=== PATIENT | female | born 1975 | race Caucasian/White ===

== ENCOUNTER 2017-07-05 15:20 | Observation (INO) | payer OTHER ==
[2017-07-05] MEDS ORDERED: NS 0.9% 1000 ML* 1,000 ML IV ONE ×2 (15:49→16:48)
--- NOTE | 2017-07-05 16:06 | RAD ---
INDICATION: Neurologic changes, code brady. COMPARISON: There are no prior studies available for comparison. TECHNIQUE: Contiguous axial sections of the brain were obtained from the skull base to the vertex without contrast. FINDINGS: The ventricles, cisterns and sulci are within normal limits. No significant focal abnormality or mass effect is seen. There is no evidence for hemorrhage. No significant focal osseous abnormality is seen. The visualized portion of the paranasal sinuses and mastoid air cells appear clear. The results of this examination were called to the referring clinician at 1601 hours. IMPRESSION: NO EVIDENCE FOR GROSS ACUTE INFARCT, MASS EFFECT OR HEMORRHAGE.
--- NOTE | 2017-07-05 16:16 | RAD ---
INDICATION: Neurologic changes, code brady. COMPARISON: There are no prior studies available for comparison. TECHNIQUE: A portable view of the chest was obtained. FINDINGS: Cardiac and mediastinal contours appear to be within normal limits. The lungs are clear. No pleural effusion is seen. IMPRESSION: NO EVIDENCE FOR ACUTE DISEASE.
[2017-07-05 16:20] LABS: ABS Basophils 0 10^3/ul (0-0.2); ABS Eosinophils 0.1 10^3/ul (0-0.6); ABS Lymphocytes 2.4 10^3/ul (1.0-4.8); ABS Monocytes 0.5 10^3/ul (0-0.8); ABS Neutrophils 3.3 10^3/ul (1.5-7.7); ABS Nucleated RBC 0 10^3/ul; Eosinophil % 0.9 % (0-6); Hematocrit 41 % (35-47); Hemoglobin 13.8 g/dl (12.0-16.0); Lymphocyte % 37.6 % (25-47); Mean Corpuscular HGB Conc 34 g/dl (31-36); Mean Corpuscular Hemoglobin 32 pg (27-31); Mean Corpuscular Volume 94 fL (80-97); Mean Platelet Volume 9 um3 (7.4-10.4); Nucleated Red Blood Cells % 0; Platelet Count 246 10^3/ul (150-450); Red Blood Count 4.31 10^6/ul (4.0-5.4); Red Cell Distribution Width 12 % (10.5-15); White Blood Count 6.3 10^3/ul (3.5-10.8)
[2017-07-05 16:43] LABS: EGFR Non-African American 84.3 (>60)
[2017-07-05 16:47] LABS: INR 1.02 (0.77-1.02)
[2017-07-05] MEDS ORDERED: diPHENhydraMINE IV* 50 MG/ML 1 ml VIAL (BENADRYL) IV ONE (16:47)
[2017-07-05] MEDS ORDERED: Metoclopramide IV* 5 MG/ML 2 ML VIAL IV ONE (16:47)
[2017-07-05] MEDS ORDERED: Ketorolac INJ* 30 MG/ML 1 ML VIAL IV PUSH ONE (16:47)
[2017-07-05] MEDS ORDERED: Ondansetron INJ* 2 MG/ML VIAL IV PRN (17:30)
[2017-07-05] MEDS ORDERED: Ibuprofen TAB* 600 MG PO PRN (17:36)
[2017-07-05] MEDS ORDERED: Acetaminophen TAB* 325 MG PO PRN (17:38)
--- NOTE | 2017-07-05 17:44 | RAD ---
INDICATION: Headache and weakness. COMPARISON: Comparison is made with a prior MRI of the same day. TECHNIQUE: A 2-D time of flight magnetic resonance venogram of the brain was performed. Images were reconstructed in the maximum intensity projection format. FINDINGS: The venous sinuses and visualized portion of the veins appear patent without evidence for thrombus or narrowing. IMPRESSION: NEGATIVE EXAM.
--- NOTE | 2017-07-05 17:49 | RAD ---
INDICATION: Headache and weakness. COMPARISON: Comparison is made with a prior CT of the brain of the same day. TECHNIQUE: Sagittal T1, axial T1, T2, susceptibility, FLAIR and diffusion weighted images were obtained. FINDINGS: The ventricles, cisterns and sulci appear to be within normal limits. No significant focal abnormality or mass effect is seen. No areas of restricted diffusion are present. There is no evidence for infarct or hemorrhage. The paranasal sinuses appear clear. There are small effusions within the mastoid air cells on both sides. IMPRESSION: 1. NO EVIDENCE FOR ACUTE INTRACRANIAL ABNORMALITY. 2. SMALL EFFUSIONS WITHIN THE MASTOID AIR CELLS.
[2017-07-05] MEDS: NS 0.9% 1000 ML* 1,000 ML IV SCH (20:08)
--- NOTE | 2017-07-05 21:43 | HP ---
CC: Dr. Sathya Santos * HISTORY AND PHYSICAL: DATE OF ADMISSION: 07/05/17 PRIMARY CARE PROVIDER: Dr. Sathya Santos. ATTENDING PHYSICIAN: Dr. Chanda Patel * (dictated by Kari Root NP). CHIEF COMPLAINT: Headache for one week with intermittent slurred speech for 2 days. HISTORY OF PRESENT ILLNESS: Ms. Dietrich is a 41-year-old female with a past medical history significant for asthma as a child and seasonal allergies who presented to the emergency room with complaints of headache x1 week. The patient states that approximately a week ago, she flew home on an approximately 6-hour flight. She states since coming home, she has had a headache intermittently, has been feeling poor enough to stay home from work. She admits to being fatigued and sleeping more. She reports subjective fevers yesterday. The patient has also reported a stiff neck for approximately a week. Yesterday, she developed an episode of slurred speech that lasted for approximately 5 to 10 minutes and this spontaneously resolved and then again around noon today, she had again an episode of 5 to 10 minutes of slurred speech. At this time, she also noticed that her right hand was having difficulty grasping a cup in addition to feeling like her left foot was "sleeping." The patient states her headaches are worse with movement such as bending over or moving her head. She also reports intermittent nausea. She denies photophobia or phonophobia. The patient also reports right facial numbness. Due to her symptoms, she decided to call her primary care provider who recommended that she present to the emergency room. While in the emergency room, the patient had labs that were essentially unremarkable. She had a brain CT with no acute findings. She was seen in consultation by Neurology, who felt that this likely represented a migraine and an MRI and MRV of the head were recommended. The hospitalists were asked to evaluate the patient for admission. PAST MEDICAL HISTORY: 1. Asthma as a child. 2. Seasonal allergies. PAST SURGICAL HISTORY: Status post section. HOME MEDICATIONS: Include ibuprofen 400 mg oral every 6 hours as needed for fever or pain. ALLERGIES: MICONAZOLE. FAMILY HISTORY: The patient reports that her father has a history of atrial fibrillation. She denies any family history of diabetes mellitus or cancer. SOCIAL HISTORY: The patient denies tobacco or recreational drug use. She occasionally drinks alcoholic beverages. She is and lives with her . Her , Vicente, will be her surrogate decision maker in the event she is unable to make decisions for herself. REVIEW OF SYSTEMS: I performed an 11-point review of systems. All the pertinent positives and negatives are mentioned in the history of present illness. The remaining review of systems are negative. PHYSICAL EXAMINATION GENERAL APPEARANCE: The patient is alert, pleasant, and appears to be in no acute distress. VITAL SIGNS: Temperature 98.5, heart rate 88, respiratory rate 20, O2 sat 99% on room air, blood pressure 116/67. HEENT: Normocephalic, atraumatic. Pupils are equal and reactive to light. Extraocular movements are intact. Mucous membranes are dry. RESPIRATORY: There is no accessory muscle use. The lungs are clear to auscultation bilaterally. CARDIOVASCULAR: Regular rate and rhythm. S1 and S2 present. There are no murmurs, rubs, or gallops. ABDOMEN: Soft, nontender, nondistended. Bowel sounds present x4. EXTREMITIES: There is no lower extremity edema. DP and PT pulses are 2+ and symmetric. MUSCULOSKELETAL: There is no clubbing or cyanosis noted. The patient is able to move her neck with full range of motion without any difficulty. NEUROLOGICAL: The patient is alert and oriented x4. Cranial nerves II through XII are grossly intact. The patient is able to dorsi and plantarflex bilaterally. She is able to lift both legs off the bed. Her handgrips are equal. Her smile is symmetric. Her tongue is midline. PSYCHOLOGICAL: The patient is calm and cooperative. SKIN: There are no rashes or abnormalities seen. DIAGNOSTIC STUDIES/LABORATORY DATA: Sodium 137, potassium 3.8, chloride 103, CO2 27, BUN 12, creatinine 0.76, glucose 101. White blood cell count 6.3, hemoglobin 13.8, hematocrit 41, and platelet count 246. EKG, normal sinus rhythm with a rate of 67. There are no acute signs of ischemia. There is no previous EKG for comparison. Head CT from today. Radiologist's impression: No evidence for gross acute infarct, mass effect, or hemorrhage. Chest x-ray from today. Radiologist's impression: No evidence for acute disease. IMPRESSION: Ms. Dietrich is a 41-year-old female with no significant past medical history who presents to the emergency room with complaints of headache for one week with associated nausea, neck discomfort, and slurred speech. She will be admitted as an observation for headache. ASSESSMENT: 1. Headache. I suspect the patient's headache and symptoms represent a migraine. She has been seen in consultation by Neurology. While in the emergency room, she will receive IV Benadryl, ketorolac, and Reglan to attempt to break her headache. She does appear slightly dehydrated. So, we are going to give her some gentle IV hydration overnight. She had an MRA and MRV and reads are pending, she has just returned from having those tests done. We will continue to do neuro checks. She will be monitored on telemetry to ensure that this is not a transient ischemic attack. We will get a fasting lipid panel in the morning. 2. Fluids, electrolytes and nutrition. The patient will be on a regular diet. 3. Code status. Full code. 4. DVT prophylaxis. The patient is at low risk. She will be encouraged to ambulate. 5. Disposition. Observation. TIME SPENT: The time for this admission was approximately 60 minutes, greater than half of that was spent with the patient discussing medications, past medical history and the events leading up to her arrival today and performing a physical examination. The case has been reviewed with the attending, Dr. Patel, who agrees with the plan of care. Reviewed by HEBER VIDAL 07/14/17 1451 [id number] #: [id number] MTDD
--- NOTE | 2017-07-05 21:51 | CONS ---
CONSULTATION REPORT: DATE OF CONSULT: 07/05/17 LOCATION: The patient is in the emergency department. REQUESTING PHYSICIAN: Dr. Benjamin. REASON FOR CONSULT: Code brady. HISTORY OF PRESENT ILLNESS: Paige Dietrich is a 41-year-old woman with no significant past medical history, who presented to the emergency department today in the setting of 1 week of intermittent headache which over the last 2 days has been associated with some transient neurologic symptoms. The patient reports no significant history of head-aches in the past aside from what she calls regular headaches, which would typically occur on the vertex of her head and were not associated with any light nor sound sensitivity and no nausea, no vomiting. This would occur rarely. One week ago today, last Monday, she developed a headache, which begins in the front of her head and radiates to the back and she says stops at the top of her spine. This headache has been very sensitive to position changes and increases when she bends over and stands back up. She denies any transient visual obscurations. The pain is pounding in nature. She denies any significant light or sound sensitivity with this, but she has been nauseated and 2 days ago she vomited. She tried taking ibuprofen yesterday and the day prior to that once which gave some but not complete relief and the headache returned. The day prior to this headache beginning, she traveled back from [facility] where she and her have been for the last 4 months traveling in [place]. She states that she had been well- hydrated normally while abroad, though did take this long plane ride. She denies any history of DVTs, PEs, or frequent miscarriages in the past. When she developed the headache the next day, she thought she was coming down with something and had some subjective fever, but did not take her temperature. She does not recall any myalgias and denies cough or runny nose or sore throat. The headache persisted through and then on Monday, she was able to go to work as it was only very mild. Over the weekend, she did not have significant headaches but felt exhausted and spent most of her time in bed. The headache returned 2 days ago and yesterday she was speaking in a group setting when she developed some tingling on the right lower lip and then some garbling of her speech, which lasted about 5 to 10 minutes. 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 She tested herself by raising her arms and smiling and there was no weakness. Today , she was at an buffet having lunch when she again developed the tingling of the right lower lip, but no garbled speech. She then also felt some tingling in her left foot and indicates that she had trouble putting weight on it when she was walking to the buffet. She also felt that she had more trouble holding on to her glass of water with her right hand and all of this lasted about 5 to 10 minutes but this is the point at which she called her primary care doctor's office and was advised to present to the emergency department. On my evaluation, she indicates her transient neurologic symptoms have all resolved, but the headache remains as described. She denies any visual changes such as vision loss or double vision with this. She describes no aphasia. She has felt that her balance has been okay aside from when her left foot was numb. PAST MEDICAL HISTORY: 1. First trimester miscarriage prior to a healthy little over 4 years ago. 2. . MEDICATIONS: No current medications aside from ibuprofen p.r.n. ALLERGIES: No known drug allergies. FAMILY HISTORY: Sister with a thyroid disorder. Mother has varicose veins. No history of stroke or blood clotting problems that she is aware of. There is also no history of migraine headaches. 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 She has 1 daughter , who is almost 4 years old. No significant substance use. REVIEW OF SYSTEMS: As per the HPI, otherwise negative. PHYSICAL EXAM: Vital Signs: Temperature 97, blood pressure 119/67, heart rate 73, oxygen saturation 100% on room air. On general examination, she is a pleasant, well-developed woman, in no acute distress. Her heart is in regular rate and rhythm with no murmurs, rubs or gallops. Lungs are clear to auscultation bilaterally. There are no carotid bruits. Her skin is intact. There is no extremity edema. I do note that her right hand is colder to touch than her left hand, but pulses are palpable. On neurologic examination, she is fully awake, alert, and oriented. Her speech is fluent with no dysarthria or aphasia. Pupils were equal, round, and reactive from 4 to 2 mm bilaterally. Her fundi were benign. Versions are full without nystagmus. Galdamez are full to finger counting. Facial sensation and musculature is full and symmetric. Hearing is intact to finger rub. The palate elevates symmetrically and the tongue is midline. On motor examination, she has normal bulk and tone in the upper and lower extremities. Strength is full both proximally and distally with no pronator drift. Sensation was intact to light touch and pinprick in the upper and lower extremities. Reflexes are 2 to 3+ in the upper extremities and at the knees and 2+ at the ankles with downgoing toes bilaterally. On finger- to-nose and [id number] testing, there is no ataxia but when asked to touch her finger to her nose with her eyes closed , she misses the target bilaterally. Romberg is negative. She is able to stand on her heels and toes. DIAGNOSTIC STUDIES/LAB DATA: There is no laboratory data available for review at this time, though CBC and CMP are pending. A noncontrast brain CT was personally reviewed and showed no evidence for any acute abnormality and overall appeared to be a grossly normal study. IMPRESSION: Paige Dietrich is a 41-year-old woman with no significant past medical history who presents with new onset headache for approximately the past week associated with some migrainous features and exacerbated with position changes who developed some transient neurologic symptoms of right lower lip numbness, left foot numbness and some right decreased nurse practitioner adult strength over the past 2 days. This occurs in the setting of previous subjective fever and fatigue raising the question of a possible infectious etiology such as viral meningitis. Furthermore, she had a recent transatlantic flight and has recently been dehydrated, which could also raise the possibility of sinus thrombosis. Given the fact she is someone who does not typically suffer from migraines, in addition to treating her symptoms with migraine cocktail, I think we should continue with workup including MRI of the brain without contrast and MRV as well. I discussed with her that if these are negative, we may need to proceed with lumbar puncture especially if her symptoms are recurrent or poorly responsive to the migraine cocktail. I am not highly suspicious of a stroke at this point given the non-localizable nature of her transient neurologic deficits. In addition, her NIH stroke scale at this point is 0. The patient will most likely need to be admitted for observation status to complete this testing. Thank you for this consultation. [id number]/[facility] #: [id number] TYESHA
[2017-07-06 05:42] LABS: EGFR Non-African American 115.1 (>60)
[2017-07-06] MEDS: NS 0.9% 1000 ML* 1,000 ML IV SCH (06:19)
[2017-07-06 08:26] LABS: Urine Appearance Clear; Urine Blood 3+ (Negative); Urine Color Yellow; Urine Ketones Negative (Negative); Urine Protein Negative (Negative); Urine Specific Gravity 1.014 (1.010-1.030); Urine Urobilinogen Negative (Negative)
[2017-07-06 12:43] VITALS: BP 95/58
--- NOTE | 2017-07-06 13:34 | PN ---
Subjective Date of Service: 07/06/17 Interval History: Patient seen and examined at bedside. Denies fever, chills, shortness of breath , chest discomfort, N/V/D. Pt states that she has a mild headache that she describes as her normal headaches. Tele: Sinus rhythm, rate 60's Family History: Unchanged from Admission Social History: Unchanged from Admission Past Medical History: Unchanged from Admission Objective Active Medications: Acetaminophen (Tylenol Tab*) 650 mg PO Q4H PRN Reason: FEVER/PAIN Sodium Chloride (Ns 0.9% 1000 Ml*) 1,000 mls @ 100 mls/hr IV PER RATE COLEEN Ibuprofen (Motrin Tab*) 600 mg PO Q6H PRN Reason: PAIN Ondansetron HCl (Zofran Inj*) 4 mg IV Q6H PRN Reason: NAUSEA Vital Signs - 8 hr 07/06/17 07/06/17 07/06/17 07:16 07:45 11:01 Temperature 98.8 F 98.8 F Pulse Rate 59 72 Respiratory 20 16 18 Rate Blood Pressure 105/62 95/58 (mmHg) O2 Sat by Pulse 98 98 Oximetry Oxygen Devices in Use Now: None Appearance: NAD, sitting up in bed Ears/Nose/Mouth/Throat: Mucous Membranes Moist Neck: NL Appearance and Movements; NL JVP - Able to move neck with full ROM Respiratory: Symmetrical Chest Expansion and Respiratory Effort, Clear to Auscultation Cardiovascular: NL Sounds; No Murmurs; No JVD, RRR Abdominal: NL Sounds; No Tenderness; No Distention Extremities: No Edema Skin: No Rash or Ulcers Neurological: Alert and Oriented x 3, NL Muscle Strength and Tone Lines/Tubes/Other Access: Clean, Dry and Intact Peripheral IV - site benign Nutrition: Taking PO's Result Diagrams: 07/05/17 16:05 07/06/17 04:50 Assess/Plan/Problems-Billing Assessment: Ms. Dietrich is a 41 yo female with no significant PMH who presented to the emergency room with complaints of slurred speech, right hand weakness, left foot tingling and headache. - Patient Problems (1) Intractable headache Code(s): R51 - HEADACHE SNOMED Code(s): 49696184 Comment: - Negative work-up - Suspect symptoms are secondary to Migraine - Low suspicion for meningitis, will hold off on LP (2) DVT prophylaxis Code(s): DWG4129 - SNOMED Code(s): 531379430 (3) Full code status Code(s): Z78.9 - OTHER SPECIFIED HEALTH STATUS SNOMED Code(s): 633608669 Status and Disposition: OBV. Stable for discharge to home today.
--- NOTE | 2017-07-07 11:46 | ED ---
Valentin Khan Angela, scribed for Anish Benjamin MD on 07/05/17 at 1550 . Neurological HPI - HPI Summary HPI Summary: This pt is a 41 y/o female [facility]/o headache x1 week, today with left leg weakness and jaw numbness since 13:30 today. Pt reports her headache began 1 week ago, described as pulsating headache located on the frontal side of her head radiating to the back of her head. At onset of headache pt also had a fever. She states that her headache was aggravated with movement of her head; she vomited once 2 days ago. Pt additionally states yesterday and today she had numbness in her jaw, left fingers and left side of her face. Today she developed slurred speech, left leg weakness and had an unsteady gait at approximately 13:30 today. Pt currently states all her symptoms have subsided except her headache. She currently rates her headache 7/10 in severity. Pt notes she feels back to normal except for her persistent headache. She denies hx of headaches. - History of Current Complaint Chief Complaint: EDHeadache Stated Complaint: HEADACHE Hx Obtained From: Patient Onset/Duration: Started hours ago, Still Present Timing: Sudden Onset Current Severity: Moderate - Headache 7/10 in severity Pain Intensity: 7 - headache Pain Scale Used: 0-10 Numeric Character: Weak - left leg, Numbness/Tingling - Numbness of left fingers, left sided face, and jaw, Impaired Speech - slurred speech, Other: - vomited once Aggravating: Change in Head Position Alleviating: Nothing Associated Signs and Symptoms: Positive: Headache, Weakness - left leg, Numbness - left fingers, left sided of face, and jaw, Nausea/Vomiting - vomited once 2 days ago - Allergy/Home Medications Allergies/Adverse Reactions: Allergies Allergy/AdvReac Type Severity Reaction Status Date / Time miconazole Allergy See Comment Verified 07/06/17 07:51 Home Medications: Home Medications Ibuprofen TAB* [Advil TAB*] 200 mg PO Q6H PRN 07/05/17 [History Confirmed ] PMH/Surg Hx/FS Hx/Imm Hx Endocrine/Hematology History: Denies: Hx Diabetes Cardiovascular History: Denies: Hx Hypertension Respiratory History: Reports: Hx Asthma - as a child - Surgical History Surgery Procedure, Year, and Place: Infectious Disease History: No Infectious Disease History: Denies: Traveled Outside the [place] in Last 30 Days - Family History Family History: Mother: breast tumor - Social History Alcohol Use: Occasionally Substance Use Type: Reports: None Smoking Status (MU): Never Smoked Tobacco Review of Systems Negative: Fever, Chills Positive: Vomiting - one episode 2 days ago Neurological: Other - slurred speech (CURRENTLY RESOLVED) Positive: Headache, Weakness - left leg: CURRENTLY RESOLVED, Numbness - left fingers, left side of the face, and jaw: CURRENTLY RESOLVED All Other Systems Reviewed And Are Negative: Yes Physical Exam - Summary Physical Exam Summary: VITAL SIGNS: Reviewed. GENERAL: Patient is a well-developed and nourished female who is lying comfortable in the stretcher. Patient is not in any acute respiratory distress. HEAD AND FACE: No signs of trauma. No ecchymosis, hematomas or skull depressions. No sinus tenderness. EYES: PERRLA, EOMI x 2, No injected conjunctiva, no nystagmus. No photophobia. EARS: Hearing grossly intact. Ear canals and tympanic membranes are within normal limits. MOUTH: Oropharynx within normal limits. NECK: Supple, trachea is midline, no adenopathy, no JVD, no carotid bruit, no c- spine tenderness, neck with full ROM. No meningeal signs, no Kernig's or brudzinskis signs. CHEST: Symmetric, no tenderness at palpation LUNGS: Clear to auscultation bilaterally. No wheezing or crackles. CVS: Regular rate and rhythm, S1 and S2 present, no murmurs or gallops appreciated. ABDOMEN: Soft, non-tender. No signs of distention. No rebound no guarding, and no masses palpated. Bowel sounds are normal. EXTREMITIES: FROM in all major joints, no edema, no cyanosis or clubbing. NEURO: Alert and oriented x 3. Speech is normal and follows commands. Numbness in the jaw. SKIN: Dry and warm GCS: 15 Triage Information Reviewed: Yes Vital Signs On Initial Exam: Initial Vitals Temp Pulse Resp BP Pulse Ox 97 F 73 16 119/67 100 07/05/17 15:28 07/05/17 15:28 07/05/17 15:28 07/05/17 15:28 07/05/17 15:28 Vital Signs Reviewed: Yes - Christie Coma Scale Best Eye Response: 4 - Spontaneous Best Motor Response: 6 - Obeys Commands Best Verbal Response: 5 - Oriented Coma Scale Total: 15 Diagnostics - Vital Signs Vital Signs Temp Pulse Resp BP Pulse Ox 07/05/17 15:28 97 F 73 16 119/67 100 - Laboratory Lab Results: Lab Results 07/05/17 07/05/17 07/05/17 Range/Units 16:05 16:05 16:05 WBC 6.3 (3.5-10.8) 10^3/ul RBC 4.31 (4.0-5.4) 10^6/ul Hgb 13.8 (12.0-16.0) g/dl Hct 41 (35-47) % MCV 94 (80-97) fL MCH 32 H (27-31) pg MCHC 34 (31-36) g/dl RDW 12 (10.5-15) % Plt Count 246 (150-450) 10^3/ul MPV 9 (7.4-10.4) um3 Neut % (Auto) 53.1 (38-83) % Lymph % (Auto) 37.6 (25-47) % Parmer % (Auto) 7.6 (1-9) % Eos % (Auto) 0.9 (0-6) % Baso % (Auto) 0.8 (0-2) % Absolute Neuts (auto) 3.3 (1.5-7.7) 10^3/ul Absolute Lymphs (auto) 2.4 (1.0-4.8) 10^3/ul Absolute Monos (auto) 0.5 (0-0.8) 10^3/ul Absolute Eos (auto) 0.1 (0-0.6) 10^3/ul Absolute Basos (auto) 0 (0-0.2) 10^3/ul Absolute Nucleated RBC 0 10^3/ul Nucleated RBC % 0 INR (Anticoag Therapy) 1.02 (0.77-1.02) APTT 27.9 (26.0-36.3) seconds Sodium 137 (133-145) mmol/L Potassium TNP Chloride 103 (101-111) mmol/L Carbon Dioxide 27 (22-32) mmol/L Anion Gap 7 (2-11) mmol/L BUN 12 (6-24) mg/dL Creatinine 0.76 (0.51-0.95) mg/dL Est GFR ( Amer) 108.4 (>60) Est GFR (Non-Af Amer) 84.3 (>60) BUN/Creatinine Ratio 15.8 (8-20) Glucose 101 H (70-100) mg/dL POC Glucose (mg/dL) (70-100) mg/dL Lactic Acid (0.5-2.0) mmol/L Calcium 9.4 (8.6-10.3) mg/dL Total Bilirubin 0.50 (0.2-1.0) mg/dL AST TNP ALT 14 (7-52) U/L Alkaline Phosphatase 39 (34-104) U/L Troponin I 0.00 (<0.04) ng/mL Total Protein 7.2 (6.4-8.9) g/dL Albumin 4.0 (3.2-5.2) g/dL Globulin 3.2 (2-4) g/dL Albumin/Globulin Ratio 1.3 (1-3) Triglycerides 90 mg/dL Cholesterol 161 mg/dL LDL Cholesterol 103 mg/dL HDL Cholesterol 40.4 mg/dL Blood Type Antibody Screen 07/05/17 07/05/17 07/05/17 Range/Units 16:05 16:05 16:07 WBC (3.5-10.8) 10^3/ul RBC (4.0-5.4) 10^6/ul Hgb (12.0-16.0) g/dl Hct (35-47) % MCV (80-97) fL MCH (27-31) pg MCHC (31-36) g/dl RDW (10.5-15) % Plt Count (150-450) 10^3/ul MPV (7.4-10.4) um3 Neut % (Auto) (38-83) % Lymph % (Auto) (25-47) % Parmer % (Auto) (1-9) % Eos % (Auto) (0-6) % Baso % (Auto) (0-2) % Absolute Neuts (auto) (1.5-7.7) 10^3/ul Absolute Lymphs (auto) (1.0-4.8) 10^3/ul Absolute Monos (auto) (0-0.8) 10^3/ul Absolute Eos (auto) (0-0.6) 10^3/ul Absolute Basos (auto) (0-0.2) 10^3/ul Absolute Nucleated RBC 10^3/ul Nucleated RBC % INR (Anticoag Therapy) (0.77-1.02) APTT (26.0-36.3) seconds Sodium (133-145) mmol/L Potassium Chloride (101-111) mmol/L Carbon Dioxide (22-32) mmol/L Anion Gap (2-11) mmol/L BUN (6-24) mg/dL Creatinine (0.51-0.95) mg/dL Est GFR ( Amer) (>60) Est GFR (Non-Af Amer) (>60) BUN/Creatinine Ratio (8-20) Glucose (70-100) mg/dL POC Glucose (mg/dL) 98 (70-100) mg/dL Lactic Acid 0.8 (0.5-2.0) mmol/L Calcium (8.6-10.3) mg/dL Total Bilirubin (0.2-1.0) mg/dL AST ALT (7-52) U/L Alkaline Phosphatase (34-104) U/L Troponin I (<0.04) ng/mL Total Protein (6.4-8.9) g/dL Albumin (3.2-5.2) g/dL Globulin (2-4) g/dL Albumin/Globulin Ratio (1-3) Triglycerides mg/dL Cholesterol mg/dL LDL Cholesterol mg/dL HDL Cholesterol mg/dL Blood Type A Positive Antibody Screen Negative Result Diagrams: 07/05/17 16:05 07/06/17 04:50 Lab Statement: Any lab studies that have been ordered have been reviewed, and results considered in the medical decision making process. - Radiology Chest XR Xray Interpretation: No Acute Changes - IMPRESSION: No evidence for acute disease. Dr. Benjamin has reviewed this radiology report. Radiology Interpretation Completed By: Radiologist - CT Brain CT CT Interpretation: No Acute Changes - IMPRESSION: No evidence for gross acute infarct, mass effect or hemorrhage. Dr. Benjamin has reviewed this radiology report. CT Interpretation Completed By: Radiologist - EKG 16:06 Cardiac Rate: NL EKG Rhythm: Sinus Rhythm - at 67 bpm EKG Interpretation: No ST elevation. Normal axis. - Additional Comments Diagnostic Additional Comments: MRI Brain, as read by radiologist: IMPRESSION: 1. No evidence for acute intracranial abnormality. 2. Small effusions within the mastoid air cells. Dr. Benjamin has reviewed this radiology report. MRV Head, as read by radiologist: IMPRESSION: Negative exam. Dr. Benjamin has reviewed this radiology report. NIH Scale - NIH Scale Level of Consciousness: Alert/Keenly Responsive Ask Patient the Month and His/Her Age: Both Correct Ask Pt to Open/Close Eyes and Bander Hand/Release Non-Paretic Hand: Both Correctly Best Gaze (Only Horizontal Eye Movement): Normal Visual Field Testing: No Visual Loss Facial Paresis-Pt to Smile & Close Eyes or Grimace Symmetry: Normal/Symmetrical Motor Function - Right Arm: No Drift-Holds 10 Seconds Motor Function - Left Arm: No Drift-Holds 10 Seconds Motor Function - Right Leg: No Drift-Holds 10 Seconds Motor Function - Left Leg: No Drift-Holds 10 Seconds Limb Ataxia-Must be out of Proportion to Weakness Present: Absent Sensory (Use Pinprick to Test Arms/Legs/Trunk/Face): Pinprick Less on Affected Best Language (Describe Picture, Name Items): No Aphasia Dysarthria (Read Several Words): Normal Extinction and Inattention: No Abnormality Total Score: 1 Re-Evaluation - Re-Evaluation First Eval Re-Evaluation Time: 03:55 Comment: Dr. Sosa, neurologist, is in to see pt. Course/Dx - Course Assessment/Plan: This pt is a 41 y/o female presenting to [facility] c/o headache x1 week, today with left leg weakness and jaw numbness since 13:30 today. Pt reports her headache began 1 week ago, described as pulsating headache located on the frontal side of her head radiating to the back of her head. At onset of headache pt also had a fever. She states that her headache was aggravated with movement of her head; she vomited once 2 days ago. Pt additionally states yesterday and today she had numbness in her jaw, left fingers and left side of her face. Today she developed slurred speech, left leg weakness and had an unsteady gait at approximately 13:30 today. Pt currently states all her symptoms have subsided except her headache. She currently rates her headache 7/ 10 in severity. Pt notes she feels back to normal except for her persistent headache. She denies hx of headaches. Test results without any significant abnormalities. Chest XR: No evidence for acute disease. CT brain: No evidence for gross acute infarct, mass effect or hemorrhage. MRI Brain: 1. No evidence for acute intracranial abnormality. 2. Small effusions within the mastoid air cells. MRV Head: Negative exam. In the ED course, we called a code mahesh because of the pts symptoms. NIH score was 1. I discussed the case with Dr. Sosa, neurologist, who came and assessed the pt. After her assessment she recommends for the pt to be given migraine cocktail and admit the pt to the hospitalist for further work up and management. I discussed the case with Dr. Cummings, hospitalist, who has agreed to admit the pt. Pt is hemodynamically stable, alert and oriented x3. - Differential Dx Differential Diagnoses Neuro: Positive: Carbon Monoxide Poisoning, Cephalgia, Cerebrovascular Accident, Migraine, Transient Ischemic Attack - Diagnoses Provider Diagnoses: CVA vs TIA vs Complex migraine headache During the Visit The Following Alert/Code Occurred: Code Huffman - at 15:48 - Physician Notifications Discussed Care Of Patient With: Solomon Cummings Time Discussed With Above Provider: 16:53 Instructed by Provider To: Other - I discussed pt care with Dr. Cummings, hospitalist, who has agreed to admit the pt. - Critical Care Time Critical Care Time: 75-104 min Discharge - Discharge Plan Condition: Stable Disposition: ADMITTED TO [facility] documentation as recorded by the Valentin espinoza Angela accurately reflects the service I personally performed and the decisions made by me, Anish Benjamin MD.
--- NOTE | 2017-07-07 23:28 | DS ---
CC: Dr. Santos * DISCHARGE SUMMARY: DATE OF ADMISSION: 07/05/17 DATE OF DISCHARGE: 07/06/17 ATTENDING PHYSICIAN: Dr. Chanda Patel * (dictated by Kari Root NP) PRIMARY CARE PROVIDER: Dr. Sathya Santos. PRIMARY DIAGNOSIS: Intractable migraine. CONSULTATIONS WHILE IN THE HOSPITAL: Dr. Danisha Sosa with Neurology. STUDIES WHILE IN THE HOSPITAL: 1. Chest x-ray from 07/05/17. Radiologist impression: No evidence for gross or acute infarct, mass effect, or hemorrhage. 2. Chest x-ray from 07/05/17. Radiologist impression: No evidence for acute disease. 3. Brain MRI from 07/05/17. Radiologist impression: No evidence for acute intracranial abnormality. Small effusions within the mastoid air cells. 4. Brain MRV on 07/05/17. Negative exam. DISCHARGE MEDICATIONS: Continued home medications: Ibuprofen 400 mg oral every 6 hours as needed for pain. HISTORY OF PRESENT ILLNESS/HOSPITAL COURSE: Ms. Dietrich is a 41-year-old female with no significant past medical history who approximately a week ago had flew home on an approximately 6-hour flight. Since returning home, she intermittently had been having headaches and feeling poor, feeling fatigued, and sleeping more and reported subjective fevers on the day prior to her presentation. She also reported neck stiffness for approximately a week. The patient states on the day prior to her admission, she had an episode of slurred speech that lasted for 5 to 10 minutes and then spontaneously resolved and again around noon on the day of presentation, she again had an episode of slurred speech lasting for 5 to 10 minutes, but this time she noticed right hand difficulty grasping a cup in addition to feeling like her left foot was sleeping. Her headaches continued and were worse with movement such as bending over. She also continued to have neck stiffness and intermittent nausea. She denied any photophobia, phonophobia, and did also report some right-sided facial numbness. Due to her symptoms, she called the primary care provider's office, who recommended she present to the emergency room. While in the emergency room, the patient had labs that were essentially unremarkable. She had a brain CT with no acute findings. She was seen in consultation by Neurology, who recommended an MRI and an MRV and suspected this was likely a migraine headache. While in the hospital, the patient underwent an MRI and MRV with no significant findings. Her headache greatly improved and was a minimal "normal headache" according to the patient. By the time of discharge, there was low suspicion that this could represent viral meningitis, and it was decided LP was not necessary at this time. Ms. Dietrich is stable for discharge to home today. Vital Signs are as follows: Temperature 98.1, heart rate 72, respiratory rate 18, O2 sat 92% on room air, blood pressure 95/58. DISCHARGE PLAN: Ms. Dietrich will be discharged to home. Activity as tolerated. She will be on a regular diet. She is encouraged to drink plenty of fluids and stay hydrated. She should be seen in followup by her primary care provider, Dr. Santos, in 1 to 2 weeks. His office will call her with an appointment date and time. The patient has been asked to return to the emergency room for any chest pain, shortness of breath, or signs of a stroke. This is a summarized report of a complex medical history and hospital stay. For further details, please see the entire medical record. TIME SPENT: Time for this discharge was approximately 50 minutes, greater than half of that was spent with the patient and her discussing discharge plans and instructions. CONDITION ON DISCHARGE: Stable. Reviewed by HEBER VIDAL 07/14/17 1454 [id number]/[place] #: [id number] TYESHA
== END 2017-07-06 14:58 | disposition home or self-care (01) ==
LOC: ED 15:20 → MEDTELE 17:53
PROVIDERS: ADMIT Internal Medicine; ATTEND Internal Medicine
DX: G43.919 Migraine, unspecified, intractable, without status migrainosus (principal); R53.1 Weakness; Z78.9 Other specified health status; R11.10 Vomiting, unspecified
CPT/HCPCS: 36415; 70450; 70544; 70551; 71045; 80048; 80053; 80061; 81003; 81015; 83605; 84484; 85025; 85610; 85730; 86850; 86900; 86901; 93005; 96374; 96375; 99285; G0378; J1200; J1885; J2765

== ENCOUNTER 2017-07-10 14:44 | Emergency (ER) | payer OTHER ==
[2017-07-10] MEDS ORDERED: Magnesium Oxide TAB* 400 MG PO ONE (18:20)
[2017-07-10 18:30] VITALS: BP 104/62
--- NOTE | 2017-07-10 18:45 | ED ---
Oskar Khan Jennifer, scribed for Ruddy Zamora MD on 07/10/17 at 1752 . Headache - HPI Summary HPI Summary: The patient is a 41 year old female who presents to the ED with left arm and face numbness and a headache that began at 13:30 today. The patient describes the numbness as pins and needles that lasted 5-10 minutes and rates the headache as a 2/10. The patient explains that she had this episode last week, which caused her to come to the ED. During last weeks visit, she also had left foot and right mouth numbness that caused slurred speech. However, she denies slurred speech today. The patient now adds that she has had this occur four times in the past week. She said the first two times it began with a headache and then numbness, whereas the 3rd and 4th episodes presented with numbness first and then headache. She adds that she vomited two days ago. The patient denies runny nose, sore throat, cough, chest congestion, and visual changes. She states that she feels almost back to the normal at the ED today. - History Of Current Complaint Chief Complaint: EDHeadache Stated Complaint: HEADACHE,LT SIDE NUMBNESS Time Seen by Provider: 07/10/17 17:39 Hx Obtained From: Patient Onset/Duration: Started weeks ago - one week ago, Still Present Initially Headache Was: Mild Currently Pain Is: Current Pain Scale(0-10)= - 2, Mild Character: Typical Headache, Migraine Location of Headache: Diffuse - began at right frontal and moved down Aggravating Factor: Nothing Allevating Factors: Nothing Associated Signs And Symptoms: Other (Noted In Comments) - Headache, left arm and face numbness, vomiting. NEGATIVE: runny nose, sore throat, cough, chest congestion, visual changes. - Allergies/Home Medications Allergies/Adverse Reactions: Allergies Allergy/AdvReac Type Severity Reaction Status Date / Time miconazole Allergy See Comment Verified 07/06/17 07:51 PMH/Surg Hx/FS Hx/Imm Hx Endocrine/Hematology History: Denies: Hx Diabetes Cardiovascular History: Denies: Hx Hypertension, Hx Pacemaker/ICD Respiratory History: Reports: Hx Asthma - as a child Sensory History: Denies: Hx Contacts or Glasses, Hx Hearing Aid Opthamlomology History: Denies: Hx Contacts or Glasses Psychiatric History: Denies: Hx Panic Disorder - Surgical History Surgery Procedure, Year, and Place: Infectious Disease History: No Infectious Disease History: Denies: Traveled Outside the [place] in Last 30 Days - Family History Known Family History: Negative: Diabetes Family History: Mother: breast tumor - Social History Alcohol Use: Occasionally Substance Use Type: Reports: None Smoking Status (MU): Never Smoked Tobacco Review of Systems Negative: Blurred Vision Negative: Sore Throat, Nasal Discharge Negative: Cough, Other - congestion Positive: Vomiting Positive: Headache, Numbness All Other Systems Reviewed And Are Negative: Yes Physical Exam - Summary Physical Exam Summary: General: well-appearing, no pain distress Skin: warm, color reflects adequate perfusion, dry Head: normal Eyes: EOMI, ALICIA ENT: normal Neck: supple, nontender Respiratory: CTA, breath sounds present Cardiovascular: RRR Abdomen: soft, nontender Bowel: present Musculoskeletal: normal, strength/ROM intact Neurological: normal, sensory/motor intact, A&O x3 Psychological: affect/mood appropriate Triage Information Reviewed: Yes Vital Signs On Initial Exam: Initial Vitals Temp Pulse Resp BP Pulse Ox 99.3 F 88 20 120/74 98 07/10/17 14:50 07/10/17 14:50 07/10/17 14:50 07/10/17 14:50 07/10/17 14:50 Vital Signs Reviewed: Yes Diagnostics - Vital Signs Vital Signs Temp Pulse Resp BP Pulse Ox 07/10/17 17:01 97.3 F 66 18 114/72 99 07/10/17 14:50 99.3 F 88 20 120/74 98 - Laboratory Lab Statement: Any lab studies that have been ordered have been reviewed, and results considered in the medical decision making process. Headache Course/Dx - Course Course Of Treatment: Allergies noted. Medications reviewed. DISCUSSED WITH DR MARIO. THE SX ARE MOST CONSISTENT WITH MIGRAINE WITH AURA. THE SX ARE TOO BRIEF FOR MS. VASCULAR HEADACHES DO NOT TYPICALLY MOVE LOCATION OR CROSS THE MID LINE. RECENT NORMAL MRI. DR MARIO RECOMMENDS MAGNESIUM 400MG A DAY TO HELP PREVENT MIGRAINE AURA AND FOR NEUROLOGY OUT PATIENT F/U. THIS WAS ALL DISCUSSED WITH THE PATIENT. F/U NEUROLOGY; RETURN IF WORSE. DISCUSSED WITH PA - Diagnoses Provider Diagnoses: Migraine - Physician Notifications Discussed Care Of Patient With: King Mario Time Discussed With Above Provider: 17:52 Instructed by Provider To: Other - Dr. Mario, neurology, suggests that the patient's symptoms are most consistent with migraine with aura. Dr. Mario recommends the patient take magnesium 400 mg a day and follow up with neurology. Discharge - Discharge Plan Condition: Stable Disposition: HOME Patient Education Materials: Migraine Headache (ED) Referrals: King Mario MD [Medical Doctor] - Additional Instructions: FOLLOW UP WITH YOUR PRIMARY CARE DOCTOR AND NEUROLOGY, DR MARIO. I SPOKE WITH DR MARIO TODAY. HE RECOMMENDS TAKING MAGNESIUM 40MG A DAY TO HELP WITH MIGRAINE AURA PREVENTION. CALL THE NEUROLOGY OFFICE TOMORROW FOR FOLLOW UP. RETURN TO THE EMERGENCY DEPARTMENT FOR ANY WORSENING OF YOUR CONDITION; PAIN, PERSISTENT OR WORSENING WEAKNESS/NUMBNESS/DIFFICULTY WITH SPEECH OR VISION OR QUESTIONS OR CONCERNS. The documentation as recorded by the Oskar espinoza Jennifer accurately reflects the service I personally performed and the decisions made by me, Ruddy Zamora MD.
== END 2017-07-10 18:28 | disposition home or self-care (01) ==
LOC: ED 14:44
DX: G43.909 Migraine, unspecified, not intractable, without status migrainosus (principal)
CPT/HCPCS: 99282

== ENCOUNTER 2017-07-17 18:45 | Emergency (ER) | payer OTHER ==
[2017-07-17] MEDS ORDERED: NS 0.9% 1000 ML* 1,000 ML IV ONE (20:38)
[2017-07-17] MEDS ORDERED: Metoclopramide IV* 5 MG/ML 2 ML VIAL IV ONE (20:38)
[2017-07-17] MEDS ORDERED: diPHENhydraMINE IV* 50 MG/ML 1 ml VIAL (BENADRYL) IV ONE (20:38)
[2017-07-17] MEDS ORDERED: Ketorolac INJ* 30 MG/ML 1 ML VIAL IV ONE (20:38)
[2017-07-17 22:15] VITALS: BP 97/60
--- NOTE | 2017-07-17 22:38 | ED ---
Oskar Khan Jennifer, scribed for Santi Swenson MD on 07/17/17 at 2046 . Headache - HPI Summary HPI Summary: The patient is a 41 year old female who complains of worsening nausea and headache that began three to four days ago. The patient has had numbness near her mouth that comes and goes for a while, but she complains of an increase in frequency of the numbness. She has a constant headache that is rated a 4/10 in pain. She explains that vomiting and walking too fast aggravates the headache. - History Of Current Complaint Chief Complaint: EDHeadache Stated Complaint: HEADACHE/N/V Time Seen by Provider: 07/17/17 20:07 Hx Obtained From: Patient Onset/Duration: Started days ago - three-four days ago, Still Present, Worse Since Initially Headache Was: Moderate Currently Pain Is: Moderate Timing: Constant Aggravating Factor: Other - Walking too fast, vomiting Allevating Factors: Nothing Associated Signs And Symptoms: Other (Noted In Comments) - nausea, numbness in face and near mouth - Allergies/Home Medications Allergies/Adverse Reactions: Allergies Allergy/AdvReac Type Severity Reaction Status Date / Time miconazole Allergy See Comment Verified 07/17/17 19:39 PMH/Surg Hx/FS Hx/Imm Hx Endocrine/Hematology History: Denies: Hx Diabetes Cardiovascular History: Denies: Hx Hypertension, Hx Pacemaker/ICD Respiratory History: Reports: Hx Asthma - as a child Sensory History: Denies: Hx Contacts or Glasses, Hx Hearing Aid Opthamlomology History: Denies: Hx Contacts or Glasses Psychiatric History: Denies: Hx Panic Disorder - Surgical History Surgery Procedure, Year, and Place: Infectious Disease History: No Infectious Disease History: Denies: Traveled Outside the [place] in Last 30 Days - Family History Known Family History: Negative: Diabetes Family History: Mother: breast tumor - Social History Alcohol Use: Rare Substance Use Type: Reports: None Smoking Status (MU): Never Smoked Tobacco Review of Systems Positive: Nausea Positive: Headache, Numbness - mouth and face All Other Systems Reviewed And Are Negative: Yes Physical Exam - Summary Physical Exam Summary: Appearance: The patient is well-nourished in no acute distress and in no acute pain. Skin: The skin is warm and dry and skin color reflects adequate perfusion. HEENT: ~The head is normocephalic and atraumatic. The pupils are equal and reactive. The conjunctivae are clear and without drainage. ~Nares are patent and without drainage. ~Mouth reveals moist mucous membranes and the throat is without erythema and exudate. ~The external ears are intact. The ear canals are patent and without drainage. The tympanic membranes are intact. Neck: the neck is supple with full range of motion and non-tender. There are no carotid bruits. ~There is no neck vein distension. Respiratory: Chest is non-tender. ~Lungs are clear to auscultation and breath sounds are symmetrical and equal. Cardiovascular: Heart is regular rate and rhythm. ~There is no murmur or rub auscultated. ~~There is no peripheral edema and pulses are symmetrical and equal. Abdomen: The abdomen is soft and non-tender. ~There are normal bowel sounds heard in all four quadrants and there is no organomegaly palpated. Musculoskeletal: There is no back tenderness noted. ~Extremities are non-tender with full range of motion. ~There is good capillary refill. ~There is no peripheral edema or calf tenderness elicited. Neurological: Patient is alert and oriented to person, place and time. ~The patient has symmetrical motor strength in all four extremities. ~Cranial nerves are grossly intact. Deep tendon reflexes are symmetrical and equal in all four extremities. Psychiatric: The patient has an appropriate affect and does not exhibit any anxiety or depression. Triage Information Reviewed: Yes Vital Signs On Initial Exam: Initial Vitals Temp Pulse Resp BP Pulse Ox 98.8 F 85 16 115/73 98 07/17/17 18:47 07/17/17 18:47 07/17/17 18:47 07/17/17 18:47 07/17/17 18:47 Vital Signs Reviewed: Yes Diagnostics - Vital Signs Vital Signs Temp Pulse Resp BP Pulse Ox 07/17/17 18:47 98.8 F 85 16 115/73 98 - Laboratory Lab Statement: Any lab studies that have been ordered have been reviewed, and results considered in the medical decision making process. Headache Course/Dx - Course Course Of Treatment: Ms. Dietrich presented with the same SARKAR she has had for several days waxing and waning. She has had migratory numbness of her face and arms which is not present now. Her SARKAR is not bad now but she came in because she is quite nauseated and this is new. I gave her NS and a 'migraine cocktail ' of benadryl, toradol and reglan which gave her significant relief. She has an appointment with Dr. Sosa tomorrow and I encouraged her to keep it. - Diagnoses Provider Diagnoses: Migraine headache Discharge - Discharge Plan Condition: Stable Disposition: HOME Patient Education Materials: Migraine Headache (ED) Referrals: King Barney MD [Medical Doctor] - 3 Days Additional Instructions: Follow up with Dr. Barney, neurology, in three days. Return to the emergency department for any new or worsening symptoms. The documentation as recorded by the Oskar espinoza Jennifer accurately reflects the service I personally performed and the decisions made by me, Santi Swenson MD.
== END 2017-07-17 22:13 | disposition home or self-care (01) ==
LOC: ED 18:45
DX: G43.909 Migraine, unspecified, not intractable, without status migrainosus (principal); R51 Headache; R11.0 Nausea
CPT/HCPCS: 96374; 96375; 99283; J1200; J1885; J2765